=== PATIENT | female | born 1950 | race Caucasian/White ===

== ENCOUNTER → 2017-09-12 | Day surgery (SDC) | payer MEDICARE, MEDICAID ==
[~2017-09-12] VITALS: Ht 172.7 cm; Wt 78.8 kg
[~2017-09-12] MED LIST: ACETAMINOPHEN 1000 MG/100 ML 100 ML IV ONE; ACETAMINOPHEN 500 MG CPLT PO PRN; ATROPINE SULFATE 1% OPHT SOLN 2 ML BTL ONE; CHLORHEXIDINE GLUCONATE 2 % 1 PACK (2 CLOTHS) TOPICAL PRN; CYCLOPENTOLATE HCL 1% OPHT SOLN 2 ML BTL ONE; DEXAMETHASONE SOD PHOS 4 MG/ML VIAL IV ONE; DEXAMETHASONE SOD PHOS 4 MG/ML VIAL ONE; DO NOT ADM ANY ANTICOAGULANT DRUGS PRN; EPINEPHrine HCL (1:1000) 1 MG/ML VIAL ONE; GLYCOPYRROLATE 1 MG/5 ML SYRINGE IV PUSH ONE; INSULIN HUMAN REGULAR 1,000 UNITS/10 ML VIAL SQ PRN; LACTATED RINGER'S 1000 ML IV PRN; LIDOCAINE HCL 1% PF 5 ML SYRINGE OTHER ONE; METOPROLOL TARTRATE 25 MG TAB PO PRN; MIDAZOLAM HCL 2 MG/2 ML VIAL ONE; ONDANSETRON HCL 4 MG/2 ML VIAL IV ONE; PHENYLEPH/NS 1000 MCG/10 ML SYR IV ONE; PHENYLEPHRINE HCL 2.5% OPTH SOLN 2 ML BTL ONE; POVIDONE IODINE 5% (ANTISEPSIS KIT) 4 APPLICATIONS EACH NARE PRN; PROPOFOL 200 MG/20 ML AMP IV ONE; ROSU40 PO; SODIUM CHLORID 0.9% 500 ML IV PRN; STERILE WATER FOR INJECTION 20 ML VIAL ONE; TOBRAMYCIN SULFATE 0.3% OPTH OINT 3.5 GM TUBE ONE; TRIAMCINOLONE ACETONIDE/PF 40 MG/ML OPTH VIAL ONE; ceFAZolin INJ 1,000 MG VIAL ONE; oxyCODONE/ACETAMINOPHEN 5 MG/325 MG TAB PO PRN
[2017-09-12] MEDS: TROPICAMIDE 1% OPHT SOLN 15 ML BTL RIGHT EYE SCH ×2 (09:00→09:15)
[2017-09-12] MEDS: ATROPINE SULFATE 1% OPHT SOLN 5 ML BTL RIGHT EYE SCH ×2 (09:00→09:15)
[2017-09-12] MEDS: PHENYLEPHRINE HCL 2.5% OPTH SOLN 2 ML BTL RIGHT EYE SCH ×2 (09:00→09:15)
[2017-09-12] MEDS: CYCLOPENTOLATE HCL 1% OPHT SOLN 2 ML BTL RIGHT EYE SCH ×2 (09:00→09:15)
[2017-09-12 09:19] LABS: AUTOMATED NEUTROPHIL # 3.2 TH/MM3 (1.8-7.7); BASOPHIL % 0.8 % (0.0-2.0); EOSINOPHIL # 0.1 TH/MM3 (0-0.4); EOSINOPHIL % 2.3 % (0.0-4.0); HEMATOCRIT 36.8 % (35.0-46.0); HEMOGLOBIN 12.8 GM/DL (11.6-15.3); LYMPH % 34.3 % (9.0-44.0); MEAN CELL VOLUME 88.6 FL (80.0-100.0); MEAN CORPUSCULAR HEMOGLOBIN 30.8 PG (27.0-34.0); MEAN CORPUSCULAR HGB CONC 34.8 % (32.0-36.0); MEAN PLATELET VOLUME 8.7 FL (7.0-11.0); MONO % 6.5 % (0.0-8.0); MONOCYTE # 0.4 TH/MM3 (0-0.9); NEUT % 56.1 % (16.0-70.0); PLATELET COUNT 196 TH/MM3 (150-450); RED BLOOD COUNT 4.16 MIL/MM3 (4.00-5.30); RED CELL DISTRIBUTION WIDTH 14.8 % (11.6-17.2); WHITE BLOOD COUNT 5.8 TH/MM3 (4.0-11.0)
--- NOTE | 2017-09-12 13:15 | MP ---
cc: Judith Black MD DATE OF OPERATION: 09/12/2017 PREOPERATIVE DIAGNOSIS: Full-thickness, stage III, macular hole, right eye. POSTOPERATIVE DIAGNOSIS: Full-thickness, stage III, macular hole, right eye. PROCEDURE PERFORMED: Trans pars plana vitrectomy with ICG-guided internal limiting membrane peel and gas-fluid exchange, right eye. SURGEON: Judith Black MD ANESTHESIA: General laryngeal mask anesthesia. INDICATIONS: Ms. Harry is a 66-year-old woman who developed decreased vision in her right eye and was found to have a full-thickness macular hole on OCT scan. She wished to proceed electively with vitrectomy and gas fluid exchange with postoperative facedown positioning to try and close the macular hole and regain visual functioning centrally. The risks and benefits of surgery were discussed with the patient and she wished to proceed. No guarantee was made as to visual outcome. She was brought to [facility] operating room #1 and placed on the operating table. Appropriate anesthesia monitoring devices were applied and she was placed under general anesthesia using a laryngeal mask. The right eye was identified as the operative site and prepped and draped in the usual sterile fashion. The lid speculum was placed. At this time, an appropriate timeout was called with the surgical team agreeing to the proposed procedure and the surgical site. The microscope was used for viewing. The 23-gauge Juan vitrectomy system was used with the trocar cannulas being placed at 3.5 mm posterior to the limbus after first displacing the conjunctiva and with a bevelled scleral entrance. The first one was placed at approximately 9 o'clock and verified to be in the posterior chamber. An infusion cannula was affixed to it and was turned on. Two additional trocar cannulas were placed at approximately 10 and 2 o'clock in similar fashion. A small amount of Kenalog was introduced into the posterior chamber through the cannula. This allowed visualization of the vitreous. Then, using a flat lens a core vitrectomy was carried out. Using the soft-tip linear extrusion needle, the posterior hyaloid was elevated off the optic nerve and macula into the mid-periphery where it was then removed with a vitrectomy cutter. A small amount of ICG was introduced into the posterior pole and allowed to settle on the macula, after which it was vacuumed off and the Vel membrane scraper was used to remove the internal limiting membrane around the hole. Next, the flat lens was exchanged out for the BIOM wide angle viewing system and a peripheral vitrectomy was carried out 360 degrees. Using the scleral depressor and indirect ophthalmoscope, the periphery was examined and no retinal holes or breaks were found. Under the wide-angle viewing system an air-fluid exchange was performed using the soft-tip linear extrusion needle. The air was then exchanged out for a 15% mixture of C3F8 gas. The trocar cannulas were then removed one by one with tamponade of the site with a cotton swab and diathermy to the overlying conjunctiva. Atropine drops were placed on the cornea, followed by subconjunctival actions of Ancef 125 mg in 0.5 mL and Decadron 2 mg in 0.5 mL. The lid speculum was removed and the patient was undraped. TobraDex ointment were placed on the cornea and then the right eye was patched and shielded. The patient had the laryngeal mask removed in the room and was returned to Recovery area in good condition, laying on her left side. When awake and alert, she will be asked to begin face-down positioning. MD JEANNE Flaherty/SCOTTY , 12:50 PM , 01:14 PM
[2017-09-12 13:50] VITALS: BP 115/59; PULSE 61; RESP 16; TEMP 97.5; O2SAT 96
--- NOTE | 2017-09-12 18:46 | EKG ---
Date Performed: 09/12/2017 Time Performed: 08:27:47 PTAGE: 66 years EKG: SINUS BRADYCARDIA LOW QRS VOLTAGE IN PRECORDIAL LEADS NONSPECIFIC T-WAVE ABNORMALITY BORDER LINE ECG NO PREVIOUS TRACING DOCTOR: Casey Rodrigez Interpretating Date/Time 09/12/2017 18:42:12
== END | disposition home or self-care (01) ==
LOC: HSDC 08:02
PROVIDERS: ATTEND Ophthalmology
DX: H35.341 Macular cyst, hole, or pseudohole, right eye (principal); R94.31 Abnormal electrocardiogram [ECG] [EKG]
CPT/HCPCS: 00145; 67042; 85025; 93005; J0131; J0171; J0690; J1100; J2250; J2370; J2405; J3010; J3300; J7120